=== PATIENT | female | born 1970 | race African-American/Black ===

== ENCOUNTER 2021-11-18 09:14 | Emergency (ER) | payer OTHER ==
[~2021-11-18] VITALS: Ht 182.9 cm; Wt 98.9 kg
[2021-11-18 09:23] VITALS: BP 172/90
--- NOTE | 2021-11-18 13:25 | NUR ---
UNABLE TO LOCATE FOR EKG
--- NOTE | 2021-11-18 13:37 | NUR ---
No answer for phlebotomy at this time
--- NOTE | 2021-11-18 13:48 | NUR ---
Called for pt out in lobby at this time. No answer.
== END 2021-11-18 13:25 | disposition left against medical advice (07) ==
LOC: MED 09:14
DX: R03.0 Elevated blood-pressure reading, without diagnosis of hypertension (principal); Z53.21 Procedure and treatment not carried out due to patient leaving prior to being seen by health care provider
CPT/HCPCS: 81002; 81025; 99281